=== PATIENT | female | born 1995 | race Caucasian/White ===

== ENCOUNTER 2019-09-23 06:42 | Inpatient (IN) | payer SELFPAY ==
[2019-09-23] VITALS (10 sets, daily range): BP systolic 98–156; BP diastolic 59–97; PULSE 98–127; RESP 13–31; TEMP 36.1–37.3; O2SAT 95–100; BMI 27.4
--- NOTE | 2019-09-23 07:07 | ED_ITS ---
Documented by User: Gumaro Dillon DO 09/27/19 08:37 HPI - Psych General: Chief Complaint: Psychiatric Symptoms Stated Complaint: self inflicted stab Time Seen by Provider: 09/23/19 07:01 History of Present Illness: HPI Narrative: 23-year-old female presents via EMS after suicide attempt with lacerations to her bilateral to the forearms. She has a large amount of dried blood in her upper and lower extremities. EMS reports there is large amount of blood at the scene as well. She is gotten approximately 200 of IV fluids. She is somnolent and smells strongly of alcohol. Initially was poorly responsive. MD complaint: suicidal ideation Onset (ago): hour(s) Context: recent alcohol abuse Associated psychiatric symptoms: suicidal ideation If self harm: admits thoughts of self harm, has acted on plan and self-inflicted trauma Review of Systems Const: Denies: fever, chills, body aches, change in appetite, fatigue or malaise ENMT: Denies: throat pain, ear pain, nasal discharge or nasal congestion Card: Denies: chest pain, edema, shortness of breath on exertion or shortness of breath when lying down Resp: Denies: shortness of breath, productive cough or non-productive cough GI: Denies: abdominal pain, nausea, vomiting, vomiting blood, coffee grounds in vomit, diarrhea, constipation, bloating, blood in stool or black tarry stool : Denies: flank pain, difficulty urinating, painful urination, urinary frequency or urinary urgency Skin/Breast: Reports: other (Bilateral lacerations to the volar surface of the forearms.); Denies: rash or itching Physical Exam Const: GENERAL APPEARANCE: cooperative and lethargic ORIENTATION/CONSCIOUSNESS: Yes awake and Yes lethargic HENMT: COMMON NORMALS: normocephalic, head/scalp atraumatic, hearing grossly normal bilaterally, external ears normal, EAC's normal, TM's normal bilaterally, nasal mucous membranes and turbinates normal, moist oral mucous membranes and oropharynx normal HEAD & SCALP: normocephalic and atraumatic NOSE: nasal mucous membranes and turbinates normal EXTERNAL EAR: Yes external ears normal EXTERNAL AUDITORY CANAL: EAC's normal TYMPANIC MEMBRANE: TM's normal bilaterally Eye: COMMON NORMALS: PERRL, EOMs intact bilaterally, conjunctivae normal and no scleral icterus CONJUNCTIVA: Yes conjunctivae normal PUPIL: Yes PERRL Neck/C-Spine: COMMON NORMALS: full ROM, no lymphadenopathy, supple and no JVD Lymph: LYMPHATIC: no lymphadenopathy noted and no lymphedema noted Resp: COMMON NORMALS: normal respiratory effort, no retractions, no use of accessory muscles and clear to auscultation bilaterally AUSCULTATION: clear to auscultation bilaterally Cardio: COMMON NORMALS: no JVD, regular rate, regular rhythm and no murmurs RATE: regular rate RHYTHM: regular rhythm GI: COMMON NORMALS: soft to palpation and no hepatosplenomegaly AUSCULTATION: Yes normoactive bowel sounds PALPATION: Yes soft, No tender, No guarding and Yes no hepatosplenomegaly Extremity: COMMON NORMALS: normal to inspection, normal capillary refill, no clubbing, cyanosis or edema, no calf tenderness and no pedal edema OTHER: Lacerations bilaterally to the forearms with 2 parallel lengthwise lacerations on the left forearm with active bleeding. These were heavily bandaged upon arrival and removal there is venous bleeding this was tamponaded with 2 [id number] 3-0 Vicryl sutures remainder the bleeding was minor pressure bandage applied. Bleeding initially was controlled with direct pressure and a blood pressure cuff after she arrived while I was placing the [id number] sutures. There are multiple lacerations on the right arm forearm with no significant active bleeding these were controlled by direct pressure with bandage. Neuro: SENSORIUM/ORIENTATION: Yes lethargic Skin: COMMON NORMALS: no rashes or lesions noted GENERAL SKIN EXAM: no rashes or lesions noted MDM - Psych MDM Narrative: Medical decision making narrative: Initial blood work reported with a hemoglobin of 7.6, and a sodium of 147. IV fluids were changed to half- normal saline and a second unit of blood was ordered to be transfused. Lab redrew the blood work and it was really reported with a hemoglobin of 12 and a sodium of 140. Once this was noted in the medical record the blood transfusion was stopped it was initiated because of patient's tachycardia on arrival and report of EMS of large volume of blood loss the second unit was started due to the report of a hemoglobin of 7 6. Patient has been stabilized lacerations were repaired and bandaged. Were going to go ahead and admit her to psychiatry. Discussed Dr. Shea he is willing to accept her in the [facility]. Lab Data: Labs: Lab Results 09/23/19 09/23/19 09/23/19 Range/Units 06:43 06:43 06:43 WBC Cancelled Corrected WBC Cancelled RBC Cancelled Hgb Cancelled Hct Cancelled MCV Cancelled MCH Cancelled MCHC Cancelled RDW Cancelled Plt Count Cancelled MPV Cancelled Gran % Cancelled Neut % (Auto) Cancelled Lymph % (Auto) Cancelled [place] % (Auto) Cancelled Eos % (Auto) Cancelled Baso % (Auto) Cancelled Neut # (Auto) Cancelled Lymph # (Auto) Cancelled [place] # (Auto) Cancelled Eos # (Auto) Cancelled Baso # (Auto) Cancelled Absolute Gran (aut o) Cancelled Nucleated RBC % (a uto) Cancelled Nucleated RBCs # Cancelled Sodium Cancelled Potassium Cancelled Chloride Cancelled Carbon Dioxide Cancelled Anion Gap Cancelled BUN Cancelled Creatinine Cancelled GFR Calculation Cancelled Glucose Cancelled Calcium Cancelled Total Bilirubin Cancelled AST Cancelled ALT Cancelled Alkaline Phosphata se Cancelled Total Protein Cancelled Albumin Cancelled Globulin Cancelled HCG, Qual (Negative) Urine Color (Yellow) Urine Appearance (CLEAR) Urine pH (5-7) Ur Specific Gravit y (1.005-1.030) Urine Protein (Negative) Urine Glucose (UA) (Normal) Urine Ketones (Negative) Urine Blood (Negative) Urine Nitrate (Negative) Urine Bilirubin (NEGATIVE) Urine Urobilinogen (Negative) mg/dL Ur Leukocyte Colleen ase (Negative) Urine RBC (0-2) /hpf Urine WBC (0-5) /hpf Ur Squamous Epith Cells (0-5) Amorphous Sediment Urine Bacteria (NONE) Hyaline Casts Urine Mucus Salicylates Cancelled Urine Opiates Scre en (Negative) ng/mL Acetaminophen Cancelled Ur Barbiturates Sc reen (Negative) ng/mL Ur Phencyclidine S crn (Negative) ng/mL Ur Amphetamines Sc reen (Negative) ng/mL U Benzodiazepines Scrn (Negative) ng/mL Urine Cocaine Scre en (Negative) ng/mL U Marijuana (THC) Screen (Negative) ng/mL Ethyl Alcohol Cancelled Blood Type O Positive Rho(D) Type Positive Antibody Screen Negative Crossmatch See Detail 09/23/19 09/23/19 09/23/19 Range/Units 06:50 06:50 06:50 WBC Corrected WBC RBC Hgb Hct MCV MCH MCHC RDW Plt Count MPV Gran % Neut % (Auto) Lymph % (Auto) [place] % (Auto) Eos % (Auto) Baso % (Auto) Neut # (Auto) Lymph # (Auto) [place] # (Auto) Eos # (Auto) Baso # (Auto) Absolute Gran (aut o) Nucleated RBC % (a uto) Nucleated RBCs # Sodium Potassium Chloride Carbon Dioxide Anion Gap BUN Creatinine GFR Calculation Glucose Calcium Total Bilirubin AST ALT Alkaline Phosphata se Total Protein Albumin Globulin HCG, Qual Negative (Negative) Urine Color Yellow (Yellow) Urine Appearance Clear (CLEAR) Urine pH 5 (5-7) Ur Specific Gravit y 1.015 (1.005-1.030) Urine Protein Trace (Negative) Urine Glucose (UA) 1+ (Normal) Urine Ketones Negative (Negative) Urine Blood Neg (Negative) Urine Nitrate Negative (Negative) Urine Bilirubin Neg (NEGATIVE) Urine Urobilinogen Norm (Negative) mg/dL Ur Leukocyte Colleen ase Negative (Negative) Urine RBC 0-4 H (0-2) /hpf Urine WBC 0-4 H (0-5) /hpf Ur Squamous Epith Cells 0-4 H (0-5) Amorphous Sediment 1+ Urine Bacteria Trace (NONE) Hyaline Casts 0-4 H Urine Mucus 1+ Salicylates Urine Opiates Scre en Negative (Negative) ng/mL Acetaminophen Ur Barbiturates Sc reen Negative (Negative) ng/mL Ur Phencyclidine S crn Negative (Negative) ng/mL Ur Amphetamines Sc reen Negative (Negative) ng/mL U Benzodiazepines Scrn Negative (Negative) ng/mL Urine Cocaine Scre en Negative (Negative) ng/mL U Marijuana (THC) Screen Negative (Negative) ng/mL Ethyl Alcohol Blood Type Rho(D) Type Antibody Screen Crossmatch 09/23/19 09/23/19 Range/Units 07:43 07:43 WBC 12.2 H Corrected WBC RBC 4.13 Hgb 12.4 Hct 37.1 MCV 89.8 MCH 30.0 MCHC 33.4 RDW 13.2 Plt Count 295 MPV 9.8 Gran % Neut % (Auto) 68.0 Lymph % (Auto) 26.5 [place] % (Auto) 4.4 Eos % (Auto) 0.2 Baso % (Auto) 0.3 Neut # (Auto) 8.3 H Lymph # (Auto) 3.2 [place] # (Auto) 0.5 Eos # (Auto) 0.0 Baso # (Auto) 0.0 Absolute Gran (aut o) Nucleated RBC % (a uto) 0 Nucleated RBCs # 0.0 Sodium 140 Potassium 4.1 Chloride 109 H Carbon Dioxide 18 L Anion Gap 17.1 BUN 6 Creatinine 0.5 GFR Calculation 150.3 H Glucose 136 H Calcium 7.8 L Total Bilirubin 0.2 AST 36 H ALT 67 H Alkaline Phosphata se 64 Total Protein 6.6 Albumin 3.7 Globulin 2.9 HCG, Qual (Negative) Urine Color (Yellow) Urine Appearance (CLEAR) Urine pH (5-7) Ur Specific Gravit y (1.005-1.030) Urine Protein (Negative) Urine Glucose (UA) (Normal) Urine Ketones (Negative) Urine Blood (Negative) Urine Nitrate (Negative) Urine Bilirubin (NEGATIVE) Urine Urobilinogen (Negative) mg/dL Ur Leukocyte Colleen ase (Negative) Urine RBC (0-2) /hpf Urine WBC (0-5) /hpf Ur Squamous Epith Cells (0-5) Amorphous Sediment Urine Bacteria (NONE) Hyaline Casts Urine Mucus Salicylates < 0.3 L Urine Opiates Scre en (Negative) ng/mL Acetaminophen < 5.0 L Ur Barbiturates Sc reen (Negative) ng/mL Ur Phencyclidine S crn (Negative) ng/mL Ur Amphetamines Sc reen (Negative) ng/mL U Benzodiazepines Scrn (Negative) ng/mL Urine Cocaine Scre en (Negative) ng/mL U Marijuana (THC) Screen (Negative) ng/mL Ethyl Alcohol 177 H Blood Type Rho(D) Type Antibody Screen Crossmatch Discharge Plan Discharge Patient Disposition: Admitted As Inpatient Admit Provider: Iron Shea Clinical Impression: Suicide attempt by cutting of wrist, Depression Condition: Stable Interventions: ED Discharge Assessment Last Done: 09/23/19 11:16 Discharge Date/Time: 09/23/19 11:19 Coding Level of Care Code ED Anesthesia Tech for Chg Fwd Exam Comprehensive Documented by User: LEONARDO Self 09/23/19 11:26 HPI - Psych General: Chief Complaint: Psychiatric Symptoms Stated Complaint: self inflicted stab Time Seen by Provider: 09/23/19 07:01 Procedures Laceration Laceration 1: Site: upper extremity Side (If applicable): right Size (cm): 2.0 Description: linear Depth: simple, single layer Local Anesthetic: lidocaine 1% Amount of anesthesia used (mL): 1.0 Pre-repair: wound explored and irrigated extensively Skin layer closed with: nylon Size (cm): 4-0 Number of sutures: 5 Technique: simple, interrupted Laceration 2: Site: upper extremity Side (If applicable): right Size (cm): 2.5 Description: linear Depth: simple, single layer Local Anesthetic: lidocaine 1% Amount of anesthesia used (mL): 1.0 Pre-repair: wound explored and irrigated extensively Skin layer closed with: nylon Size (cm): 4-0 Number of sutures: 6 Technique: running Laceration 3: Site: upper extremity Side (If applicable): left Size (cm): 8.0 Description: linear Depth: simple, single layer Local Anesthetic: lidocaine 1% Amount of anesthesia used (mL): 4.0 Pre-repair: wound explored and irrigated extensively Skin layer closed with: nylon Size (cm): 4-0 Number of sutures: 12 Technique: simple, interrupted Laceration 4: Site: upper extremity Side (If applicable): left Size (cm): 10.0 Description: linear Depth: simple, single layer Local Anesthetic: lidocaine 1% Amount of anesthesia used (mL): 5.0 Pre-repair: wound explored and irrigated extensively Skin layer closed with: nylon Size (cm): 4-0 Number of sutures: 20 Laceration 5: Site: upper extremity Side (If applicable): left Size (cm): 1.5 Description: linear Depth: simple, single layer Local Anesthetic: lidocaine 1% Amount of anesthesia used (mL): 1.0 Pre-repair: wound explored and irrigated extensively Skin layer closed with: nylon Size (cm): 4-0 Number of sutures: 3 MDM - Psych Lab Data: Labs: Lab Results 09/23/19 09/23/19 09/23/19 Range/Units 06:43 06:43 06:43 WBC Cancelled Corrected WBC Cancelled RBC Cancelled Hgb Cancelled Hct Cancelled MCV Cancelled MCH Cancelled MCHC Cancelled RDW Cancelled Plt Count Cancelled MPV Cancelled Gran % Cancelled Neut % (Auto) Cancelled Lymph % (Auto) Cancelled [place] % (Auto) Cancelled Eos % (Auto) Cancelled Baso % (Auto) Cancelled Neut # (Auto) Cancelled Lymph # (Auto) Cancelled [place] # (Auto) Cancelled Eos # (Auto) Cancelled Baso # (Auto) Cancelled Absolute Gran (aut o) Cancelled Nucleated RBC % (a uto) Cancelled Nucleated RBCs # Cancelled Sodium Cancelled Potassium Cancelled Chloride Cancelled Carbon Dioxide Cancelled Anion Gap Cancelled BUN Cancelled Creatinine Cancelled GFR Calculation Cancelled Glucose Cancelled Calcium Cancelled Total Bilirubin Cancelled AST Cancelled ALT Cancelled Alkaline Phosphata se Cancelled Total Protein Cancelled Albumin Cancelled Globulin Cancelled HCG, Qual (Negative) Urine Color (Yellow) Urine Appearance (CLEAR) Urine pH (5-7) Ur Specific Gravit y (1.005-1.030) Urine Protein (Negative) Urine Glucose (UA) (Normal) Urine Ketones (Negative) Urine Blood (Negative) Urine Nitrate (Negative) Urine Bilirubin (NEGATIVE) Urine Urobilinogen (Negative) mg/dL Ur Leukocyte Colleen ase (Negative) Urine RBC (0-2) /hpf Urine WBC (0-5) /hpf Ur Squamous Epith Cells (0-5) Amorphous Sediment Urine Bacteria (NONE) Hyaline Casts Urine Mucus Salicylates Cancelled Urine Opiates Scre en (Negative) ng/mL Acetaminophen Cancelled Ur Barbiturates Sc reen (Negative) ng/mL Ur Phencyclidine S crn (Negative) ng/mL Ur Amphetamines Sc reen (Negative) ng/mL U Benzodiazepines Scrn (Negative) ng/mL Urine Cocaine Scre en (Negative) ng/mL U Marijuana (THC) Screen (Negative) ng/mL Ethyl Alcohol Cancelled Blood Type O Positive Rho(D) Type Positive Antibody Screen Negative Crossmatch See Detail 09/23/19 09/23/19 09/23/19 Range/Units 06:50 06:50 06:50 WBC Corrected WBC RBC Hgb Hct MCV MCH MCHC RDW Plt Count MPV Gran % Neut % (Auto) Lymph % (Auto) [place] % (Auto) Eos % (Auto) Baso % (Auto) Neut # (Auto) Lymph # (Auto) [place] # (Auto) Eos # (Auto) Baso # (Auto) Absolute Gran (aut o) Nucleated RBC % (a uto) Nucleated RBCs # Sodium Potassium Chloride Carbon Dioxide Anion Gap BUN Creatinine GFR Calculation Glucose Calcium Total Bilirubin AST ALT Alkaline Phosphata se Total Protein Albumin Globulin HCG, Qual Negative (Negative) Urine Color Yellow (Yellow) Urine Appearance Clear (CLEAR) Urine pH 5 (5-7) Ur Specific Gravit y 1.015 (1.005-1.030) Urine Protein Trace (Negative) Urine Glucose (UA) 1+ (Normal) Urine Ketones Negative (Negative) Urine Blood Neg (Negative) Urine Nitrate Negative (Negative) Urine Bilirubin Neg (NEGATIVE) Urine Urobilinogen Norm (Negative) mg/dL Ur Leukocyte Colleen ase Negative (Negative) Urine RBC 0-4 H (0-2) /hpf Urine WBC 0-4 H (0-5) /hpf Ur Squamous Epith Cells 0-4 H (0-5) Amorphous Sediment 1+ Urine Bacteria Trace (NONE) Hyaline Casts 0-4 H Urine Mucus 1+ Salicylates Urine Opiates Scre en Negative (Negative) ng/mL Acetaminophen Ur Barbiturates Sc reen Negative (Negative) ng/mL Ur Phencyclidine S crn Negative (Negative) ng/mL Ur Amphetamines Sc reen Negative (Negative) ng/mL U Benzodiazepines Scrn Negative (Negative) ng/mL Urine Cocaine Scre en Negative (Negative) ng/mL U Marijuana (THC) Screen Negative (Negative) ng/mL Ethyl Alcohol Blood Type Rho(D) Type Antibody Screen Crossmatch 09/23/19 09/23/19 Range/Units 07:43 07:43 WBC 12.2 H Corrected WBC RBC 4.13 Hgb 12.4 Hct 37.1 MCV 89.8 MCH 30.0 MCHC 33.4 RDW 13.2 Plt Count 295 MPV 9.8 Gran % Neut % (Auto) 68.0 Lymph % (Auto) 26.5 [place] % (Auto) 4.4 Eos % (Auto) 0.2 Baso % (Auto) 0.3 Neut # (Auto) 8.3 H Lymph # (Auto) 3.2 [place] # (Auto) 0.5 Eos # (Auto) 0.0 Baso # (Auto) 0.0 Absolute Gran (aut o) Nucleated RBC % (a uto) 0 Nucleated RBCs # 0.0 Sodium 140 Potassium 4.1 Chloride 109 H Carbon Dioxide 18 L Anion Gap 17.1 BUN 6 Creatinine 0.5 GFR Calculation 150.3 H Glucose 136 H Calcium 7.8 L Total Bilirubin 0.2 AST 36 H ALT 67 H Alkaline Phosphata se 64 Total Protein 6.6 Albumin 3.7 Globulin 2.9 HCG, Qual (Negative) Urine Color (Yellow) Urine Appearance (CLEAR) Urine pH (5-7) Ur Specific Gravit y (1.005-1.030) Urine Protein (Negative) Urine Glucose (UA) (Normal) Urine Ketones (Negative) Urine Blood (Negative) Urine Nitrate (Negative) Urine Bilirubin (NEGATIVE) Urine Urobilinogen (Negative) mg/dL Ur Leukocyte Colleen ase (Negative) Urine RBC (0-2) /hpf Urine WBC (0-5) /hpf Ur Squamous Epith Cells (0-5) Amorphous Sediment Urine Bacteria (NONE) Hyaline Casts Urine Mucus Salicylates < 0.3 L Urine Opiates Scre en (Negative) ng/mL Acetaminophen < 5.0 L Ur Barbiturates Sc reen (Negative) ng/mL Ur Phencyclidine S crn (Negative) ng/mL Ur Amphetamines Sc reen (Negative) ng/mL U Benzodiazepines Scrn (Negative) ng/mL Urine Cocaine Scre en (Negative) ng/mL U Marijuana (THC) Screen (Negative) ng/mL Ethyl Alcohol 177 H Blood Type Rho(D) Type Antibody Screen Crossmatch Discharge Plan Discharge Patient Disposition: Admitted As Inpatient Admit Provider: Iron Shea Clinical Impression: Suicide attempt by cutting of wrist, Depression Condition: Stable Interventions: ED Discharge Assessment Last Done: 09/23/19 11:16 Discharge Date/Time: 09/23/19 11:19 Coding Level of Care Code ED Anesthesia Tech for Cory Fwd Exam Comprehensive
[2019-09-23 07:18] LABS: HCG Qualitative Urine. Negative (Negative)
--- NOTE | 2019-09-23 07:46 | PC.NURSE ---
other items used: 4x4 (6) ABDs (5) Betadine (1) Peroxide (1) Irrigation 500cc (3)
[2019-09-23 07:50] LABS: Basophils % 0.3 %; Eosinophils % 0.2 %; Hematocrit 37.1 % (37.0-47.0); Hemoglobin 12.4 g/dL (11.5-15.3); Lymphocytes # 3.2 10^3/uL (0.8-4.8); Lymphocytes % 26.5 %; Mean Corpuscular HGB Conc 33.4 g/dL (30.0-36.0); Mean Corpuscular Volume 89.8 fL (81-99); Mean Platelet Volume 9.8 fL (7.4-10.4); Monocytes # 0.5 10^3/uL (0.2-0.9); Monocytes % 4.4 %; Neutrophils # 8.3 10^3/uL (1.8-7.7); Nucleated Red Blood Cells % 0 %; Platelet Count 295 10^3/cmm (130-400); Red Blood Count 4.13 10^6/uL (4.1-5.3); Red Cell Distribution Width 13.2 % (12.1-15.1); White Blood Count 12.2 10^3/uL (4.0-10.0)
[2019-09-23 07:58] LABS: Add Urine Microscopic? YES; Bilirubin Urine Neg (NEGATIVE); Blood Urine Neg (Negative); Glucose Urine UA 1+ (Normal); Ketones Urine Negative (Negative); Leukocyte Esterase Urine Negative (Negative); Nitrate Urine Negative (Negative); Protein Urine Trace (Negative); Specific Gravity, Urine 1.015 (1.005-1.030); Urine Appearance Clear (CLEAR); Urine Color Yellow (Yellow); Urobilinogen Urine Norm (Negative); pH Urine 5 (5-7)
[2019-09-23 08:06] LABS: Amphetamines Screen Urine Negative (Negative); Barbiturates Screen Urine Negative (Negative); Benzodiazepines Screen Urine Negative (Negative); Cocaine Screen Urine Negative (Negative); Opiate Screen Urine Negative (Negative); PCP Screen Urine Negative (Negative); THC Screen Urine Negative (Negative)
[2019-09-23 08:07] LABS: Alanine Aminotransferase 67 U/L (0-33); Albumin Level 3.7 g/dL (3.5-5.2); Alcohol Level 177 mg/dL (0-10); Alkaline Phosphatase 64 IU/L (35-105); Anion Gap 17.1 (5-19); Aspartate Amino Transferase 36 U/L (0-32); Blood Urea Nitrogen 6 mg/dL (6-20); Calcium 7.8 mg/dL (8.5-10.5); Carbon Dioxide 18 mmol/L (22-29); Chloride 109 mmol/L (98-107); Globulin 2.9 g/dL (1.3-4.6); Glomerular Filtration Rate 150.3 mL/min (90-130); Glucose 136 mg/dL (65-115); Potassium 4.1 mmol/L (3.5-5.1); Sodium 140 mmol/L (136-145); Total Bilirubin 0.2 mg/dL (0.15-1.2); Total Protein 6.6 g/dL (6.6-8.7)
[2019-09-23 08:13] LABS: Acetaminophen < 5.0 ug/mL (10-30); Salicylate < 0.3 mg/dL (3-10)
[2019-09-23 08:20] LABS: Bacteria Urine TRACE; RBC Urine 0-4 /hpf (0-2); Squamous Epithelial Cell Urine 0-4 (0-5); WBC Urine 0-4 /hpf (0-5)
[2019-09-23 08:21] LABS: Add Urine Culture? No; Amorphous Sediment Urine 1+; Hyaline Casts Urine 0-4; Mucus Urine 1+
[2019-09-23] MEDS: ondansetron 2 mg/ML SDV 2 mL 4 MG IVP (08:54)
[2019-09-23] MEDS: LORazepam 2 mg/mL INJ 1 mL 0.5 MG IVP (08:56)
[2019-09-23] MEDS: LORazepam 2 mg/mL INJ 1 mL (09:47)
[2019-09-23] MEDS: sodium chloride 0.45% 1,000 ML 125 ML IV (09:48)
[2019-09-23] MEDS: ceFAZolin 1,000 MG in sodium chloride 0.9% (plus) 50 ML 100 MG IV (09:50)
[2019-09-23] MEDS: tetanus-dipt-pertussis 0.5 mL SDV IM (09:53)
[2019-09-23] MEDS: acetaminophen 325 mg Tablet 650 MG PO ×2 (14:52→21:16)
[2019-09-23] MEDS: hyDROXYzine 25 mg Capsule 50 MG PO ×2 (15:45→21:16)
--- NOTE | 2019-09-23 21:18 | PC.NURSE ---
TYLENOL 650 MG PO GIVEN FOR PAIN IN BILATERAL FOREARMS FROM CUTTING SELF. VISTARIL 50 MG PO GIVEN FOR ANXIETY.
[2019-09-24 06:00] VITALS: BP 111/73; PULSE 83; RESP 17; TEMP 36.8; O2SAT 99
[2019-09-24] MEDS: acetaminophen 325 mg Tablet 650 MG PO ×3 (06:16→21:21)
--- NOTE | 2019-09-24 06:19 | PC.NURSE ---
TYLENOL 650 MG PO GIVEN FOR PAIN IN BILATERAL FA FROM CUTTING.
[2019-09-24 06:33] LABS: Basophils % 0.4 %; Eosinophils # 0.1 10^3/uL (0.0-0.8); Eosinophils % 1.6 %; Hematocrit 33.6 % (37.0-47.0); Hemoglobin 11.2 g/dL (11.5-15.3); Lymphocytes # 2.8 10^3/uL (0.8-4.8); Lymphocytes % 35.9 %; Mean Corpuscular HGB Conc 33.3 g/dL (30.0-36.0); Mean Corpuscular Hemoglobin 29.8 pg (28.0-34.0); Mean Corpuscular Volume 89.4 fL (81-99); Mean Platelet Volume 9.9 fL (7.4-10.4); Monocytes # 0.5 10^3/uL (0.2-0.9); Monocytes % 5.9 %; Neutrophils # 4.3 10^3/uL (1.8-7.7); Neutrophils % 55.9 %; Nucleated Red Blood Cells % 0 %; Platelet Count 218 10^3/cmm (130-400); Red Blood Count 3.76 10^6/uL (4.1-5.3); Red Cell Distribution Width 13.5 % (12.1-15.1); White Blood Count 7.7 10^3/uL (4.0-10.0)
[2019-09-24 06:39] LABS: Anion Gap 14.8 (5-19); Blood Urea Nitrogen 14 mg/dL (6-20); Carbon Dioxide 24 mmol/L (22-29); Chloride 104 mmol/L (98-107); Glomerular Filtration Rate 87.4 mL/min (90-130); Glucose 92 mg/dL (65-115); Osmolality Calculated 284 mOsm/kg (285-295); Potassium 3.8 mmol/L (3.5-5.1); Sodium 139 mmol/L (136-145)
[2019-09-24] MEDS: multivitamin therapeutic Tablet 1 TAB PO (08:47)
[2019-09-24] MEDS: thiamine 100 mg Tablet PO (08:47)
[2019-09-24] MEDS: folic acid 1 mg Tablet PO (08:47)
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
[2019-09-24] MEDS: lamoTRIgine 25 mg Tablet PO (12:11)
[2019-09-24] MEDS: escitalopram 10 mg Tablet PO (12:12)
[2019-09-24 13:53] VITALS: BP 134/87; PULSE 83; RESP 18
[2019-09-24] MEDS: nicotine 21 mg Patch 1 PATCH TRANSDERMA (13:56)
[2019-09-24] MEDS: diphenhydrAMINE 25 mg Capsule PO ×2 (13:56→21:20)
[2019-09-24] MEDS: trazodone 50 mg Tablet PO (21:21)
[2019-09-24 21:24] VITALS: BP 137/68; PULSE 91; RESP 30; TEMP 37.1; O2SAT 97
[2019-09-25 06:00] VITALS: BP 111/68; PULSE 79; RESP 18; TEMP 36.9; O2SAT 97
[2019-09-25] MEDS: lamoTRIgine 25 mg Tablet PO (09:02)
[2019-09-25] MEDS: thiamine 100 mg Tablet PO (09:02)
[2019-09-25] MEDS: escitalopram 10 mg Tablet PO (09:02)
[2019-09-25] MEDS: diphenhydrAMINE 25 mg Capsule PO ×2 (09:02→16:43)
[2019-09-25] MEDS: multivitamin therapeutic Tablet 1 TAB PO (09:02)
[2019-09-25] MEDS: acetaminophen 325 mg Tablet 650 MG PO ×2 (09:02→16:43)
[2019-09-25] MEDS: folic acid 1 mg Tablet PO (09:02)
[2019-09-25 14:00] VITALS: BP 107/65; PULSE 89; RESP 18; TEMP 36.9; O2SAT 97
--- NOTE | 2019-09-25 14:18 | PM.NPN ---
Subjective NPU Subjective: Interval history: Nona presents today reporting that she feels pretty crappy still. She denies having any side effects of the medications at this point and is hopeful that they will start kicking in. She reports that she is going to try to be active in the groups and get the most this hospitalization but she still feeling pretty sad about her circumstance. She is eating okay and sleeping a little better. Mental Status Exam MSE Comments: This is an overweight versus obese white female with adequate distress, limited grooming and eye contact. Bandages all over her arms from the cuts which were sutured. No abnormal movements except for psychomotor retardation. Cooperative with exam in no acute distress. Speech was decreased rate and volume. Mood described as depressed and anxious, affect congruent. Thought process organized. Thought content: Patient denied any homicidal ideation but endorsed less suicidal ideation, there were no delusions noted but paranoia was reported, she denied any auditory or visual hallucinations. Attention and concentration appear intact and memory was mostly reliable but none were formally tested. She is alert and oriented ?3. Insight and judgment are impaired. Vitals/I&O/Wt Last Vital Signs Temp 97.7 F 09/26/19 06:00 Pulse 75 09/26/19 06:00 Resp 16 09/26/19 06:00 BP 105/71 09/26/19 06:00 Pulse Ox 98 09/26/19 06:00 Home Medications No Known Home Medications 09/23/19 [History Confirmed 09/23/19] Active Medications Acetaminophen (Tylenol) 650 mg PO Q4H PRN PRN Reason: MILD PAIN Last Admin: 09/25/19 16:43 Dose: 650 mg Documented by: Benztropine Mesylate (Cogentin) 1 mg PO BID PRN PRN Reason: Mild Extrapyramidal symptoms Camphor/Menthol/Phenol (Blistex) 1 applic TOPICAL Q1H PRN PRN Reason: DRYNESS Diphenhydramine HCl (Benadryl) 50 mg IM Q4H PRN PRN Reason: Severe Aggression Diphenhydramine HCl (Benadryl) 25 mg PO Q6H PRN PRN Reason: ITCHING Last Admin: 09/25/19 16:43 Dose: 25 mg Documented by: Escitalopram Oxalate (Lexapro) 10 mg PO DAILY [facility] Last Admin: 09/25/19 09:02 Dose: 10 mg Documented by: Folic Acid (Folic Acid) 1 mg PO DAILY [facility] Last Admin: 09/25/19 09:02 Dose: 1 mg Documented by: Haloperidol (Haldol) 5 mg PO Q4H PRN PRN Reason: AGITATION Haloperidol Lactate (Haldol Inj) 5 mg IM Q4H PRN PRN Reason: Severe Aggression Hydroxyzine Pamoate (Vistaril) 50 mg PO Q6H PRN PRN Reason: ANXIETY Last Admin: 09/23/19 21:16 Dose: 50 mg Documented by: Lamotrigine (Lamictal) 25 mg PO DAILY [facility] Last Admin: 09/25/19 09:02 Dose: 25 mg Documented by: Loperamide HCl (Imodium Capsule) 2 mg PO Q6H PRN PRN Reason: DIARRHEA Lorazepam (Ativan) 2 mg IM PROTOCOL PRN; Protocol PRN Reason: ALCOWD Lorazepam (Ativan) 2 mg PO PROTOCOL PRN; Protocol PRN Reason: WITHDRAWAL Lorazepam (Ativan) 2 mg IM Q4H PRN PRN Reason: Severe Aggression Multivitamins Therapeutic (Multivitamin Tab) 1 tab PO DAILY [facility] Last Admin: 09/25/19 09:02 Dose: 1 tab Documented by: Nicotine (Nicoderm 21 Mg Patch) 1 patch TRANSDERMA DAILY PRN PRN Reason: NICOTINE WITHDRAWAL Last Admin: 09/25/19 16:46 Dose: 1 patch Documented by: Nicotine Polacrilex (Nicorette) 2 mg BUCCAL Q2H PRN PRN Reason: NICOTINE WITHDRAWAL Olanzapine (Zyprexa Zydis) 5 mg PO Q4H PRN PRN Reason: Agitation/Psychosis Ondansetron HCl (Zofran) 4 mg PO Q6H PRN PRN Reason: NAUSEA AND VOMITING Thiamine Mononitrate (Vitamin B-1) 100 mg PO DAILY [facility] Last Admin: 09/25/19 09:02 Dose: 100 mg Documented by: Physical Exam Urinary Catheter Management^: Quinones: Cath Placed During This Visit: yes Urethral Indwelling: No Reason for Continuing Indwelling Catheter: Accurate Measurement of Urinary Output in Critically Ill Patients Urinary Catheter Date of Insertion: 09/23/19 Urinary Catheter Time of Insertion: 07:34 Data NPU : 09/24/19 06:10 09/24/19 06:10 A&P Additional A&P Information This is 23-year-old white female with a history of schizoaffective disorder with a more identifiable history of posttraumatic stress disorder and borderline personality disorder who presents status post suicide attempt with lacerations all over her body off of medication reportedly open to treatment. 1. Continue current medications 2. Encourage individual, group and milieu therapy. 3. Continue every 15 minute checks for safety. 4. Work to obtain supportive OP services. Involuntary Hold Information 96 Hour Hold: 96 Hour Involuntary Admission: No Attestations NPU Medical Necessity Statement*: Inpatient hospitalization is medically necessary in the clinically appropriate intervention at this time. We will monitor medications and adjust as indicated. Likely length of stay 2-4 days. Coding Level of Care Code Acute Professional Skateboarder for Cory Islas
[2019-09-25] MEDS: nicotine 21 mg Patch 1 PATCH TRANSDERMA (16:46)
[2019-09-25] MEDS: trazodone 50 mg Tablet PO (21:09)
[2019-09-25 21:50] VITALS: BP 138/82; PULSE 96; RESP 17; TEMP 36.8; O2SAT 99
[2019-09-26 06:00] VITALS: BP 105/71; PULSE 75; RESP 16; TEMP 36.5; O2SAT 98
[2019-09-26] MEDS: thiamine 100 mg Tablet PO (09:44)
[2019-09-26] MEDS: folic acid 1 mg Tablet PO (09:44)
[2019-09-26] MEDS: multivitamin therapeutic Tablet 1 TAB PO (09:44)
[2019-09-26] MEDS: escitalopram 10 mg Tablet PO (09:44)
[2019-09-26] MEDS: lamoTRIgine 25 mg Tablet PO (09:44)
[2019-09-26] MEDS: acetaminophen 325 mg Tablet 650 MG PO (13:43)
[2019-09-26] MEDS: diphenhydrAMINE 25 mg Capsule PO (13:43)
[2019-09-26 14:00] VITALS: BP 102/66; PULSE 83; RESP 20; TEMP 37; O2SAT 98
--- NOTE | 2019-09-26 14:22 | P.PN_ITS ---
Subjective NPU Subjective: Interval history: Nona continued to be withdrawn but endorsed improvement and is focused on figuring out what she could not do when she is discharged. She has been working with the social workers on a plan for after hospitalization. She endorsed that she is eating okay and sleeping better. Mental Status Exam MSE Comments: This is an overweight versus obese white female with adequate distress, limited grooming and eye contact. Bandages all over her arms from the cuts which were sutured. No abnormal movements except for slightly improved psychomotor retardation. Cooperative with exam in no acute distress. Speech was decreased rate and volume. Mood described as depressed and anxious with slight improvement, affect congruent. Thought process organized. Thought content: Patient denied any homicidal ideation and endorsed less suicidal ideation, there were no delusions noted or reported, she denied any auditory or visual hallucinations. Attention and concentration appear intact and memory was mostly reliable but none were formally tested. She is alert and oriented ?3. Insight and judgment are impaired but improving. Vitals/I&O/Wt Last Vital Signs Temp 98.4 F 09/26/19 22:00 Pulse 77 09/26/19 22:00 Resp 16 09/26/19 22:00 BP 107/68 09/26/19 22:00 Pulse Ox 98 09/26/19 22:00 Home Medications No Known Home Medications 09/23/19 [History Confirmed 09/23/19] Active Medications Acetaminophen (Tylenol) 650 mg PO Q4H PRN PRN Reason: MILD PAIN Last Admin: 09/26/19 13:43 Dose: 650 mg Documented by: Benztropine Mesylate (Cogentin) 1 mg PO BID PRN PRN Reason: Mild Extrapyramidal symptoms Camphor/Menthol/Phenol (Blistex) 1 applic TOPICAL Q1H PRN PRN Reason: DRYNESS Diphenhydramine HCl (Benadryl) 50 mg IM Q4H PRN PRN Reason: Severe Aggression Diphenhydramine HCl (Benadryl) 25 mg PO Q6H PRN PRN Reason: ITCHING Last Admin: 09/26/19 13:43 Dose: 25 mg Documented by: Escitalopram Oxalate (Lexapro) 10 mg PO DAILY [facility] Last Admin: 09/26/19 09:44 Dose: 10 mg Documented by: Folic Acid (Folic Acid) 1 mg PO DAILY [facility] Last Admin: 09/26/19 09:44 Dose: 1 mg Documented by: Haloperidol (Haldol) 5 mg PO Q4H PRN PRN Reason: AGITATION Haloperidol Lactate (Haldol Inj) 5 mg IM Q4H PRN PRN Reason: Severe Aggression Hydroxyzine Pamoate (Vistaril) 50 mg PO Q6H PRN PRN Reason: ANXIETY Last Admin: 09/26/19 15:31 Dose: 50 mg Documented by: Lamotrigine (Lamictal) 25 mg PO DAILY [facility] Last Admin: 09/26/19 09:44 Dose: 25 mg Documented by: Loperamide HCl (Imodium Capsule) 2 mg PO Q6H PRN PRN Reason: DIARRHEA Lorazepam (Ativan) 2 mg IM PROTOCOL PRN; Protocol PRN Reason: ALCOWD Lorazepam (Ativan) 2 mg PO PROTOCOL PRN; Protocol PRN Reason: WITHDRAWAL Lorazepam (Ativan) 2 mg IM Q4H PRN PRN Reason: Severe Aggression Multivitamins Therapeutic (Multivitamin Tab) 1 tab PO DAILY [facility] Last Admin: 09/26/19 09:44 Dose: 1 tab Documented by: Nicotine (Nicoderm 21 Mg Patch) 1 patch TRANSDERMA DAILY PRN PRN Reason: NICOTINE WITHDRAWAL Last Admin: 09/25/19 16:46 Dose: 1 patch Documented by: Nicotine Polacrilex (Nicorette) 2 mg BUCCAL Q2H PRN PRN Reason: NICOTINE WITHDRAWAL Olanzapine (Zyprexa Zydis) 5 mg PO Q4H PRN PRN Reason: Agitation/Psychosis Ondansetron HCl (Zofran) 4 mg PO Q6H PRN PRN Reason: NAUSEA AND VOMITING Thiamine Mononitrate (Vitamin B-1) 100 mg PO DAILY [facility] Last Admin: 09/26/19 09:44 Dose: 100 mg Documented by: Trazodone HCl (Desyrel) 50 - 100 mg PO BEDTIME PRN PRN Reason: SLEEP Physical Exam Urinary Catheter Management^: Quinones: Cath Placed During This Visit: yes Urethral Indwelling: No Reason for Continuing Indwelling Catheter: Accurate Measurement of Urinary Output in Critically Ill Patients Urinary Catheter Date of Insertion: 09/23/19 Urinary Catheter Time of Insertion: 07:34 Data NPU : 09/24/19 06:10 09/24/19 06:10 A&P Additional A&P Information This is 23-year-old white female with a history of schizoaffective disorder with a more identifiable history of posttraumatic stress disorder and borderline personality disorder who presents status post suicide attempt with lacerations all over her body off of medication reportedly open to treatment. 1. Continue current medications 2. Encourage individual, group and milieu therapy. 3. Continue every 15 minute checks for safety. 4. Work to obtain supportive OP services. Involuntary Hold Information 96 Hour Hold: 96 Hour Involuntary Admission: No Attestations NPU Medical Necessity Statement*: Inpatient hospitalization is medically necessary in the clinically appropriate intervention at this time. We will monitor medications and adjust as indicated. Likely length of stay 1-3 days. Coding Level of Care Code Acute Energy Project Engineer for Cory Islas
[2019-09-26] MEDS: hyDROXYzine 25 mg Capsule 50 MG PO (15:31)
--- NOTE | 2019-09-26 15:31 | PC.NURSE ---
Addendum entered by Abby Ding LPN 09/26/19 16:20: MEDICATION EFFECTIVE. NO FURTHER c/o anxiety. Original Note: PRN VISTARIL VISTARIL 50MG PO PER PATIENT C/O ANXIETY. WILL CONTINUE TO MONITOR FOR MEDICATION EFFECTIVENESS.
[2019-09-26 22:00] VITALS: BP 107/68; PULSE 77; RESP 16; TEMP 36.9; O2SAT 98
[2019-09-27 06:00] VITALS: BP 102/53; PULSE 70; RESP 17; TEMP 36.8; O2SAT 97
[2019-09-27] MEDS: acetaminophen 325 mg Tablet 650 MG PO (06:33)
[2019-09-27] MEDS: diphenhydrAMINE 25 mg Capsule PO ×2 (06:33→11:56)
[2019-09-27] MEDS: folic acid 1 mg Tablet PO (09:59)
[2019-09-27] MEDS: thiamine 100 mg Tablet PO (09:59)
[2019-09-27] MEDS: multivitamin therapeutic Tablet 1 TAB PO (09:59)
[2019-09-27] MEDS: lamoTRIgine 25 mg Tablet PO (09:59)
[2019-09-27] MEDS: escitalopram 10 mg Tablet PO (09:59)
--- NOTE | 2019-09-27 11:24 | PC.NURSE ---
BILAT DRESSINGS REMOVED. HAD PT CLEANSE BUE WITH SOAP/WATER. SUTURES INTACT, LUE=41 SUTURES RUE=11 NO S/SX OF INFECTION, EDGES WELL APPROXIMATED. INSTRUCTED ON S/SX OF INFECTION, VERBALIZES UNDERSTANDING ABD PLACED ON LUE, SECURED WITH TAPE. RUE LEFT OPEN TO AIR.
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
[2019-09-27 12:25] VITALS: BP 102/53; PULSE 70; RESP 17; TEMP 36.8; O2SAT 97
[2019-09-27 12:28] VITALS: BP 102/53; PULSE 70; RESP 17; TEMP 36.8; O2SAT 97
== END 2019-09-27 14:21 | disposition home or self-care (01) | DRG 876 ==
LOC: ER 10:00 → NP 10:34
PROVIDERS: Admitting Provider Psychiatry & Neurology Psychiatry; Emergency Provider Family Medicine; Family Provider Family Medicine; PCP Family Medicine; Visit Provider Psychiatry & Neurology Psychiatry
DX: F60.3 Borderline personality disorder (principal); R45.851 Suicidal ideations; F43.10 Post-traumatic stress disorder, unspecified; X78.9XXA Intentional self-harm by unspecified sharp object, initial encounter; S51.822A Laceration with foreign body of left forearm, initial encounter; S51.821A Laceration with foreign body of right forearm, initial encounter; F10.10 Alcohol abuse, uncomplicated; F17.210 Nicotine dependence, cigarettes, uncomplicated; E66.9 Obesity, unspecified; G47.00 Insomnia, unspecified; Z68.28 Body mass index [BMI] 28.0-28.9, adult; Z91.5 Personal history of self-harm; Z62.810 Personal history of physical and sexual abuse in childhood; Z79.899 Other long term (current) drug therapy
CPT/HCPCS: 12006; 12345; 36415; 36430; 51702; 80048; 80053; 80307; 81001; 81025; 85025; 86850; 86900; 86920; 90471; 90715; 96374; 96375; 99284; J0690; J2060; J2405; P9016